=== PATIENT | female | born 1945 | race Hispanic/Latino ===

== ENCOUNTER 2022-08-19 17:03 | Emergency (ER) | payer OTHER ==
[~2022-08-19] VITALS: Ht 149.9 cm; Wt 73.9 kg
[2022-08-19] MEDS ORDERED: ASPIRIN 325MG TAB PO ONE (17:30)
[2022-08-19] MEDS ORDERED: NITROGLYCERIN 1GM OINT 1 INCH/1GM TD ONE (17:30)
[2022-08-19 17:48] LABS: BASOPHILS % (AUTO) 0.5 % (0.0-5.0); EOSINOPHILS % (AUTO) 1.7 % (0.0-8.0); HEMATOCRIT 36.4 % (36-48); LYMPHOCYTES % (AUTO) 17.6 % (21.0-51.0); MEAN CORPUSCULAR HEMOGLOBIN 29.6 pg (27.0-33.0); MEAN CORPUSCULAR HGB CONC 34.6 g/dL (32.0-36.0); MEAN CORPUSCULAR VOLUME 85.6 fL (79-99); MONOCYTES % (AUTO) 9.6 % (3.0-13.0); NEUTROPHILS % (AUTO) 69.9 % (40.0-77.0); PLATELET COUNT (AUTO) 273 K/uL (130-400); RED BLOOD CELL COUNT(AUTO) 4.25 MIL/uL (4.00-5.50); RED CELL DISTRIBUTION WIDTH 12.9 % (11.0-15.5); WHITE BLOOD COUNT (AUTO) 5.9 K/uL (4.8-10.8)
[2022-08-19] MEDS ORDERED: ALBUTEROL 0.083% 2.5 MG/3 ML INH IH ONE (18:00)
[2022-08-19] MEDS ORDERED: GUAIFENESIN-CODEINE 5 ML SYRUP PO ONE (18:00)
[2022-08-19] MEDS ORDERED: IPRATROPIUM/ALBUTEROL SULFATE 3 ML SOLUTION IH ONE (18:00)
[2022-08-19] MEDS ORDERED: BUDESONIDE 0.5 MG/2 ML INH IH SCH (18:00)
[2022-08-19] MEDS ORDERED: 0.9% NACL 500ML IV.SOLN 500 ML IV SCH (18:00)
[2022-08-19] MEDS ORDERED: SOLU-MEDROL 125MG VIAL IVP ONE (18:00)
[2022-08-19 18:03] LABS: CREATININE 0.8 mg/dL (0.5-1.5); POTASSIUM 3.3 mmol/L (3.5-5.1)
[2022-08-19 18:08] LABS: ALBUMIN 3.4 g/dL (3.5-5.0); TOTAL PROTEIN, SERUM 7.1 g/dL (6.0-8.3)
[2022-08-19 18:19] LABS: B-TYPE NATRIURETIC PEPTIDE 169 pg/mL (0-100)
[2022-08-19] MEDS ORDERED: DOXYCYCLINE HYCLATE 100 MG TABLET PO SCH (19:00)
[2022-08-19] MEDS ORDERED: POTASSIUM BICARB/CIT AC 25 MEQ TABLET.EFF PO ONE (19:00)
[2022-08-19] MEDS ORDERED: DOXY-469 PO (19:29)
[2022-08-19] MEDS ORDERED: BENZ-39 PO (19:29)
[2022-08-19] MEDS ORDERED: ALBU6.7H14 IH (19:29)
[2022-08-19] MEDS ORDERED: MELO-106 PO (19:29)
[2022-08-19 20:00] VITALS: BP 125/64
== END 2022-08-19 20:47 | disposition home or self-care (01) ==
LOC: EDH 17:03
DX: J40 Bronchitis, not specified as acute or chronic (principal); M94.0 Chondrocostal junction syndrome [Tietze]; Z20.822 Contact with and (suspected) exposure to COVID-19; I10 Essential (primary) hypertension; I25.10 Atherosclerotic heart disease of native coronary artery without angina pectoris; I48.91 Unspecified atrial fibrillation; Z79.1 Long term (current) use of non-steroidal anti-inflammatories (NSAID); Z88.0 Allergy status to penicillin; Z88.5 Allergy status to narcotic agent; Z90.49 Acquired absence of other specified parts of digestive tract; Z95.810 Presence of automatic (implantable) cardiac defibrillator
CPT/HCPCS: 99285; 96374; 71045; 87635; 83735; 84484; 80053; 83880; 85025; 87804 ×2; 36415; 93005; 94640 ×3; C9803; J7040; J2930

== ENCOUNTER 2022-11-21 15:51 | Emergency (ER) | payer OTHER ==
[~2022-11-21] VITALS: Ht 160 cm; Wt 73.5 kg
[~2022-11-21 15:51] MED LIST: ALBU6.7H14 IH; BENZ-39 PO; DOXY-469 PO; MELO-106 PO
[2022-11-21] MEDS ORDERED: ACETAMINOPHEN 500 MG TABLET PO ONE (17:00)
[2022-11-21 19:52] VITALS: BP 134/66
== END 2022-11-21 20:01 | disposition home or self-care (01) ==
LOC: EDH 15:51
DX: M25.562 Pain in left knee (principal); I10 Essential (primary) hypertension; Z79.899 Other long term (current) drug therapy; Z88.5 Allergy status to narcotic agent; Z88.0 Allergy status to penicillin; W03.XXXA Other fall on same level due to collision with another person, initial encounter; Y93.89 Activity, other specified; Y92.89 Other specified places as the place of occurrence of the external cause; Y99.8 Other external cause status
CPT/HCPCS: 72125; 73562

== ENCOUNTER 2023-10-18 11:31 | Emergency (ER) | payer BC, MEDICAID, OTHER ==
[~2023-10-18] VITALS: Ht 152.4 cm; Wt 71.7 kg
[2023-10-18 12:20] LABS: RAPID GROUP A STREP negative (NEGATIVE)
[2023-10-18 12:30] LABS: INFLUENZA TYPE A Negative For Type A (NEGATIVE); INFLUENZA TYPE B Negative For Type B (NEGATIVE)
[2023-10-18 12:36] LABS: SARS-CoV-2, RNA, NAAT POSITIVE SARS CoV-2 (NEGATIVE)
[2023-10-18] MEDS ORDERED: AZIT500T2 PO (13:30)
[2023-10-18] MEDS ORDERED: BENZ-39 PO (13:30)
[2023-10-18 14:36] VITALS: BP 177/64; PULSE 60; RESP 18; O2SAT 99
== END 2023-10-18 16:16 | disposition home or self-care (01) ==
LOC: EDH 11:31
DX: U07.1 COVID-19 (principal); R05.9 Cough, unspecified; J02.9 Acute pharyngitis, unspecified
CPT/HCPCS: 87635; 87804; 87880

== ENCOUNTER 2023-10-30 16:13 | Emergency (ER) | payer BC ==
[~2023-10-30] VITALS: Ht 157.5 cm; Wt 72.6 kg
[~2023-10-30 16:13] MED LIST changes: +AZIT500T2 PO
[2023-10-30 20:14] LABS: BASOPHILS # (AUTO) 0.03 K/uL (0.00-0.20); BASOPHILS % (AUTO) 0.3 % (0.0-5.0); EOSINOPHILS # (AUTO) 0.06 K/uL (0.00-0.70); EOSINOPHILS % (AUTO) 0.7 % (0.0-8.0); HEMATOCRIT 41.1 % (36-48); IMMATURE GRANULOCYTE ABSOLUTE 0.04 K/uL (0-1); LYMPHOCYTES # (AUTO) 1.4 K/uL (1.0-4.8); LYMPHOCYTES % (AUTO) 14.7 % (21.0-51.0); MEAN CORPUSCULAR HEMOGLOBIN 29.7 pg (27.0-33.0); MEAN CORPUSCULAR HGB CONC 33.6 g/dL (32.0-36.0); MEAN CORPUSCULAR VOLUME 88.4 fL (79-99); MONOCYTES # (AUTO) 0.7 K/uL (0.1-1.0); MONOCYTES % (AUTO) 7.9 % (3.0-13.0); PLATELET COUNT (AUTO) 289 K/uL (130-400); RED BLOOD CELL COUNT(AUTO) 4.65 MIL/uL (4.00-5.50); RED CELL DISTRIBUTION WIDTH 13.6 % (11.0-15.5); WHITE BLOOD COUNT (AUTO) 9.2 K/uL (4.8-10.8)
[2023-10-30 20:28] LABS: CREATININE 0.6 mg/dL (0.5-1.5); POTASSIUM 3.8 mmol/L (3.5-5.1)
[2023-10-30 20:33] LABS: ALBUMIN 4.1 g/dL (3.5-5.0); BILIRUBIN,TOTAL 0.5 mg/dL (0.2-1.0); TOTAL PROTEIN, SERUM 8.4 g/dL (6.0-8.3)
[2023-10-30 20:43] VITALS: BP 151/56; PULSE 62; RESP 16; O2SAT 100
[2023-10-30 20:50] LABS: APPEARANCE,URINE CLEAR (CLEAR); BILIRUBIN,URINE NEGATIVE (NEGATIVE); COLOR,URINE LIGHT-YELLOW (YELLOW); GLUCOSE, URINE (UA) NEGATIVE (NEGATIVE); KETONES,URINE NEGATIVE (NEGATIVE); LEUKOCYTE ESTERASE ,URINE NEGATIVE Leu/uL (NEGATIVE); NITRATE,URINE NEGATIVE (NEGATIVE); OCCULT BLOOD,URINE NEGATIVE (NEGATIVE); PH,URINE 6.5 (5.0-8.0); PROTEIN,URINE NEGATIVE (NEGATIVE); UROBILINOGEN,URINE 0.2 mg/dL (0.2-1.0)
[2023-10-30 21:11] LABS: ADD UA MICROSCOPIC YES
[2023-10-30 21:28] LABS: BACTERIA,URINE RARE /HPF (None Seen); MUCUS,URINE RARE LPF (None Seen); SQUAMOUS EPITHELIAL CELL,UR MOD /HPF (0-2); WBC,URINE 0-1 /HPF (0-1)
[2023-10-30] MEDS ORDERED: FAMO-136 PO (22:03)
[2023-10-30] MEDS ORDERED: PRED20TA3 PO (22:03)
[2023-10-30] MEDS ORDERED: DIPH50 PO (22:03)
[2023-10-30] MEDS ORDERED: PREDNISONE 20 MG TABLET PO ONE (22:30)
[2023-10-30] MEDS ORDERED: DIPHENHYDRAMINE HCL 25 MG CAPSULE PO ONE (22:30)
== END 2023-10-30 22:06 | disposition home or self-care (01) ==
LOC: EDH 16:13
DX: T78.40XA Allergy, unspecified, initial encounter (principal); I10 Essential (primary) hypertension; Z88.0 Allergy status to penicillin; Z88.5 Allergy status to narcotic agent; Z95.0 Presence of cardiac pacemaker
CPT/HCPCS: 36415; 71045; 80053; 81001; 82150; 82550; 83690; 85025

== ENCOUNTER 2024-01-30 09:46 | Emergency (ER) | payer BC, OTHER ==
[~2024-01-30] VITALS: Ht 160 cm; Wt 72.6 kg
[~2024-01-30 09:46] MED LIST changes: +DIPH50 PO; +FAMO-136 PO; +PRED20TA3 PO
[2024-01-30 13:01] VITALS: BP 130/72; PULSE 60; RESP 18; O2SAT 99
== END 2024-01-30 13:04 | disposition home or self-care (01) ==
LOC: EDH 09:46
DX: S70.12XA Contusion of left thigh, initial encounter (principal); M79.672 Pain in left foot; M25.572 Pain in left ankle and joints of left foot; M25.562 Pain in left knee; M25.552 Pain in left hip; M79.605 Pain in left leg; I10 Essential (primary) hypertension; W01.10XA Fall on same level from slipping, tripping and stumbling with subsequent striking against unspecified object, initial encounter; Y93.89 Activity, other specified; Y92.89 Other specified places as the place of occurrence of the external cause; Y99.8 Other external cause status
CPT/HCPCS: 72170; 73552; 73562; 73590; 73600; 73620; 93971

== ENCOUNTER 2024-04-18 17:17 | Emergency (ER) | payer OTHER ==
[~2024-04-18] VITALS: Ht 154.9 cm; Wt 70.3 kg
[~2024-04-18 17:17] MED LIST changes: -DOXY-469 PO; +DOXY100C61 PO
[2024-04-18 20:49] LABS: BASOPHILS # (AUTO) 0.03 K/uL (0.00-0.20); BASOPHILS % (AUTO) 0.5 % (0.0-5.0); EOSINOPHILS # (AUTO) 0.12 K/uL (0.00-0.70); EOSINOPHILS % (AUTO) 1.9 % (0.0-8.0); HEMATOCRIT 38.6 % (36-48); IMMATURE GRANULOCYTE ABSOLUTE 0.02 K/uL (0-1); LYMPHOCYTES % (AUTO) 16.3 % (21.0-51.0); MEAN CORPUSCULAR HEMOGLOBIN 28.4 pg (27.0-33.0); MEAN CORPUSCULAR HGB CONC 33.2 g/dL (32.0-36.0); MEAN CORPUSCULAR VOLUME 85.6 fL (79-99); MONOCYTES # (AUTO) 0.5 K/uL (0.1-1.0); MONOCYTES % (AUTO) 8.6 % (3.0-13.0); NEUTROPHILS # (AUTO) 4.6 K/uL (1.8-7.7); NEUTROPHILS % (AUTO) 72.4 % (40.0-77.0); PLATELET COUNT (AUTO) 223 K/uL (130-400); RED BLOOD CELL COUNT(AUTO) 4.51 MIL/uL (4.00-5.50); RED CELL DISTRIBUTION WIDTH 13.9 % (11.0-15.5); WHITE BLOOD COUNT (AUTO) 6.3 K/uL (4.8-10.8)
[2024-04-18 21:03] LABS: CREATININE 0.7 mg/dL (0.5-1.0); POTASSIUM 4.2 mmol/L (3.5-5.1)
[2024-04-18 21:07] LABS: ALBUMIN 4.1 g/dL (3.5-5.0); BILIRUBIN,TOTAL 0.4 mg/dL (0.2-1.0); TOTAL PROTEIN, SERUM 8.5 g/dL (6.0-8.3)
[2024-04-18] MEDS: KETOROLAC 15MG/ML VIAL (15MG/ML) IV ONE (21:46)
[2024-04-18 21:49] VITALS: BP 123/70; PULSE 77; RESP 20; O2SAT 98
[2024-04-19] MEDS ORDERED: PHEN-776 PO (10:43)
[2024-04-19] MEDS ORDERED: NITR100C9 PO (10:43)
== END 2024-04-18 21:58 | disposition left against medical advice (07) ==
LOC: EDH 17:17
DX: R10.2 Pelvic and perineal pain (principal); I10 Essential (primary) hypertension; Z88.5 Allergy status to narcotic agent; Z88.0 Allergy status to penicillin; Z79.899 Other long term (current) drug therapy; Z98.890 Other specified postprocedural states
CPT/HCPCS: 99285; 74176; 96374; 80053; 85025; 36415; J1885

== ENCOUNTER 2024-04-19 09:16 | Emergency (ER) | payer OTHER ==
[~2024-04-19] VITALS: Ht 152.4 cm; Wt 63.5 kg
[2024-04-19 10:08] LABS: ADD UA MICROSCOPIC YES; APPEARANCE,URINE CLEAR (CLEAR); BILIRUBIN,URINE NEGATIVE (NEGATIVE); COLOR,URINE YELLOW (YELLOW); GLUCOSE, URINE (UA) NEGATIVE (NEGATIVE); KETONES,URINE NEGATIVE (NEGATIVE); LEUKOCYTE ESTERASE ,URINE NEGATIVE Leu/uL (NEGATIVE); NITRATE,URINE NEGATIVE (NEGATIVE); OCCULT BLOOD,URINE SMALL (NEGATIVE); PH,URINE 6.5 (5.0-8.0); PROTEIN,URINE NEGATIVE (NEGATIVE); UROBILINOGEN,URINE 0.2 mg/dL (0.2-1.0)
[2024-04-19 10:12] LABS: MUCUS,URINE RARE LPF (None Seen); SQUAMOUS EPITHELIAL CELL,UR FEW /HPF (0-2); WBC,URINE 0-1 /HPF (0-1)
[2024-04-19] MEDS ORDERED: PHEN-776 PO (10:43)
[2024-04-19] MEDS ORDERED: NITR100C9 PO (10:43)
[2024-04-19 10:44] VITALS: BP 161/62; PULSE 62; RESP 16; O2SAT 98
== END 2024-04-19 10:51 | disposition home or self-care (01) ==
LOC: EDH 09:16
DX: R39.89 Other symptoms and signs involving the genitourinary system (principal); R30.0 Dysuria; I10 Essential (primary) hypertension; Z88.5 Allergy status to narcotic agent; Z88.0 Allergy status to penicillin; Z79.899 Other long term (current) drug therapy; Z90.49 Acquired absence of other specified parts of digestive tract; Z95.0 Presence of cardiac pacemaker; Z98.890 Other specified postprocedural states
CPT/HCPCS: 81001

== ENCOUNTER 2024-05-05 10:37 | Emergency (ER) | payer OTHER ==
[~2024-05-05] VITALS: Ht 167.6 cm; Wt 65.8 kg
[~2024-05-05 10:37] MED LIST changes: +NITR100C9 PO; +PHEN-776 PO
[2024-05-05 11:31] LABS: SARS-CoV-2, RNA, NAAT NEGATIVE SARS CoV-2 (NEGATIVE)
[2024-05-05 11:37] LABS: INFLUENZA TYPE A Negative For Type A (NEGATIVE); INFLUENZA TYPE B Negative For Type B (NEGATIVE)
[2024-05-05] MEDS: IPRATROPIUM/ALBUTEROL SULFATE 3 ML SOLUTION IH ONE (11:52)
[2024-05-05 11:54] VITALS: PULSE 60; RESP 20
[2024-05-05] MEDS ORDERED: BENZ-39 PO (11:55)
[2024-05-05] MEDS: GUAIFENESIN-DM 200/20 MG 10 ML PO ONE (12:20)
[2024-05-05] MEDS: DEXAMETHASONE SOD PHOSPHATE 4 MG/ML 1ML VIAL IM ONE (12:20)
[2024-05-05 13:00] VITALS: BP 146/67; PULSE 60; RESP 17; O2SAT 98
== END 2024-05-05 12:50 | disposition home or self-care (01) ==
LOC: EDH 10:37
DX: J40 Bronchitis, not specified as acute or chronic (principal); I10 Essential (primary) hypertension; E11.9 Type 2 diabetes mellitus without complications; Z90.49 Acquired absence of other specified parts of digestive tract; Z20.822 Contact with and (suspected) exposure to COVID-19; Z79.899 Other long term (current) drug therapy; Z98.890 Other specified postprocedural states; Z88.0 Allergy status to penicillin; Z88.5 Allergy status to narcotic agent
CPT/HCPCS: 99284; 71046; 87635; 87880; 87804 ×2; 96372; 94640; J1100

== ENCOUNTER 2024-11-19 18:01 | Emergency (ER) | payer SELFPAY ==
[~2024-11-19] VITALS: Ht 165.1 cm; Wt 68.0 kg
--- NOTE | 2024-11-19 19:00 | ERN ---
ED Note History of Present Illness Stated Complaint: LOWER ABDOMINAL PAIN Chief Complaint: Abdominal Pain Time Seen by MD: 18:06 Time Seen by Midlevel: 18:06 Dictation: The patient is an 79-year-old female with a history of hypertension who presents to the emergency department with complains of suprapubic abd pain and painful urination onset 3 weeks ago. Patient denies any fevers, nausea or vomiting, denies diarrhea or constipation. denies hematuria . Allergies: Coded Allergies: Penicillins (Unverified Allergy, Unknown, 08/19/22) morphine (Unverified Allergy, Unknown, 08/19/22) Home Meds Active Scripts Benzonatate (Tessalon Perles) 100 Mg Cap, 100 MG PO q8 hours PRN for Cough, #15 CAP 0 Refills Prov:ROSALES MCCRAY NP 05/05/24 Nitrofurantoin Monohyd/M-Cryst (Nitrofurantoin [place]-Mcr 100 mg) 100 Mg Capsule, 100 MG PO BID for 5 Days, #10 CAP Prov:JOSETTE SOTO NP 04/19/24 Phenazopyridine HCl (Pyridium) 200 Mg Tablet, 200 MG PO TID for painful urination for 10 Days, #30 TAB 0 Refills Prov:JOSETTE SOTO NP 04/19/24 Famotidine (Pepcid) 20 Mg Tablet, 20 MG PO DAILY, #30 TAB Prov:YOVANI MCARTHUR MD 10/30/23 Prednisone (Prednisone) 20 Mg Tablet, 1 TAB PO AD for 6 Days, #14 TAB 0 Refills TAKE 3 TAB BY MOUTH daily X3 DAYS, THEN TAKE 2 TAB BY MOUTH daily X2 DAYS, THEN TAKE 1 TAB BY MOUTH ONCE A DAY X1 DAY. Prov:YOVANI MCARTHUR MD 10/30/23 Diphenhydramine HCl (Benadryl) 50 Mg Cap, 50 MG PO QID PRN for itching for 10 Days, #30 CAP 0 Refills Prov:YOVANI MCARTHUR MD 10/30/23 Benzonatate (Tessalon Perles) 100 Mg Cap, 100 MG PO TID for cough, #30 CAP 0 Refills Prov:AMINTA RAMACHANDRAN NP 10/18/23 Azithromycin (Zithromax Tri-[place]ley) 500 Mg Tablet, 500 MG PO DAILY, #3 TAB Prov:AMINTA RAMACHANDRAN NP 10/18/23 Meloxicam (Meloxicam) 7.5 Mg Tablet, 7.5 MG PO DAILYBKFST, #30 TAB Prov:CARTER CUTLER 08/19/22 Albuterol Sulfate (Proventil Hfa) 6.7 Gm Hfa.aer.ad, 2 PUFF IH QID, #1 INHALER Prov:CARTER CUTLER 08/19/22 Benzonatate (Tessalon Perles) 100 Mg Cap, 100 MG PO QID, #30 CAP Prov:CARTER CUTLER 08/19/22 Doxycycline Monohydrate (Doxycycline Monohydrate) 100 Mg Capsule, 100 MG PO BID for 10 Days, #20 CAP Prov:CARTER CUTLER 08/19/22 Past Medical History Past Medical History: Hypertension Surgical History: Cholecystectomy, Pacer/AICD Surgical History Other: PACEMAKER Family History: Negative Social History: Lives with family History: Not Applicable RN Note Reviewed/Agreed w/PFSH: Yes Review of System Dictation Constitutional: Negative for fever,chills, and weight loss Eyes: Negative for injury, pain,redness, and discharge ENT: Negative for injury,pain or swelling Cardiovascular: Negative for chest pain, palpitations, and edema Respiratory: Negative for shortness of breath, cough, and wheezing, Abdomen/GI: Negative for nausea, vomiting, diarrhea, and constipation positive for abdominal pain, Back: Negative for injury and pain : Negative for injury, bleeding and discharge positive for painful urination MS/Extremity: Negative for injury and deformity Skin: Negative for rash, and discoloration Neuro: Negative for headache, weakness, numbness, tingling, and seizure Psych: Negative for suicide ideation, homicidal ideation, and hallucinations Initial Vital Sign VS Vital Signs Date Time Temp Pulse Resp B/P (MAP) Pulse Ox O2 Delivery O2 Flow Rate FiO2 11/19/24 18:03 97.3 60 20 164/69 99 Room Air 0 Physical Exam Dictation Vital Signs reviewed General Appearance: Alert, oriented x 3, no acute distress, well developed, nourished. Head and Face: non-traumatic. Eyes: PERRL, pink conjunctivas, eyelid no trauma, anterior chamber with arcus senilis. Ears: Pinnas intact and no signs of trauma or erythema ear canals clear and no discharge TM no erythema Nose: No discharge, no bleeding. Oropharynx: Mouth normal, tongue pink. pharynx clear,no erythema, tonsils no exudates, no abscesses noted, mucous membrane moist Neck: Supple, non-tender, no thyromegaly, no masses, no JVD, no bruits Breast:Deferred Chest:No tenderness, no crepitus, no paradoxical movement, no retractions Lungs:Clear, well-ventilated, symmetric, no rales, no wheezing, no rhonchi, no stridor, good breath sounds bilaterally Heart: Regular rate, regular rhythm, no murmur, no gallops Vascular: no peripheral edema, Abdomen: Soft, positive bowel sounds, nondistended, no guarding, nontender, no rebound, no masses no hepatomegaly, no splenomegaly, no Apple's sign, no hernias. Rectal: Deferred Genital: Deferred Neurological: Normal speech, motor function intact, sensory function intact Musculoskeletal: Neck nontender, full range of motion, back nontender, full range of motion, Extremities: nontender, full range of motion Skin: Color pink, dry, no turgor, no rash, no lacerations, no abrasions, no contusions. Lymphatic: Deferred Results (Laboratory/Radiology) Laboratory/Radiology Laboratory Tests Test 11/19/24 20:10 11/19/24 20:15 Urine Color COLORLESS (YELLOW) Urine Appearance CLEAR (CLEAR) Urine pH 7.0 (5.0-8.0) Urine Specific [place] 1.002 (1.001-1.031) Urine Protein NEGATIVE mg/dL (NEGATIVE) Urine Glucose (UA) NEGATIVE mg/dL (NEGATIVE) Urine Ketones NEGATIVE mg/dL (NEGATIVE) Urine Occult Blood NEGATIVE (NEGATIVE) Urine Nitrate NEGATIVE (NEGATIVE) Urine Bilirubin NEGATIVE mg/dL (NEGATIVE) Urine Urobilinogen 0.2 mg/dL (0.2-1.0) Urine Leukocyte Esterase NEGATIVE Elia/uL White Blood Count 4.8 K/uL (4.8-10.8) Red Blood Count 4.10 MIL/uL (4.00-5.50) Hemoglobin 12.2 g/dL (12.0-16.0) Hematocrit 37.4 % (36-48) Mean Corpuscular Volume 91.2 fL (79-99) Mean Corpuscular Hemoglobin 29.8 pg (27.0-33.0) Mean Corpuscular Hemoglobin Concent 32.6 g/dL (32.0-36.0) Red Cell Distribution Width 13.4 % (11.0-15.5) Platelet Count 191 K/uL (130-400) Mean Platelet Volume 9.5 fL (7.5-10.5) Immature Granulocyte % (Auto) 0.4 % (0-1) Neutrophils (%) (Auto) 67.7 % (40.0-77.0) Lymphocytes (%) (Auto) 20.7 % (21.0-51.0) L Monocytes (%) (Auto) 8.9 % (3.0-13.0) Eosinophils (%) (Auto) 1.7 % (0.0-8.0) Basophils (%) (Auto) 0.6 % (0.0-5.0) Neutrophils # (Auto) 3.3 K/uL (1.8-7.7) Lymphocytes # (Auto) 1.0 K/uL (1.0-4.8) Monocytes # (Auto) 0.4 K/uL (0.1-1.0) Eosinophils # (Auto) 0.08 K/uL (0.00-0.70) Basophils # (Auto) 0.03 K/uL (0.00-0.20) Absolute Immature Granulocyte (auto 0.02 K/uL (0-1) Nucleated Red Blood Cells 0.0 % (0.0-0.19) Sodium Level 135 mmol/L (136-145) L Potassium Level 3.7 mmol/L (3.5-5.1) Chloride Level 98 mmol/L (101-111) L Carbon Dioxide Level 35 mmol/L (21-32) H Blood Urea Nitrogen 18 mg/dL (7-18) Creatinine 0.8 mg/dL (0.5-1.0) Glomerular Filtration Rate Calc 74 mL/min (>90) Random Glucose 100 mg/dL (70-105) Total Calcium 9.0 mg/dL (8.5-10.1) Labs Reviewed?: Yes ED Course ED Course Orders Procedure Category Date Status Time Cbc With Differential LAB 11/19/24 Complete 18: Urinalysis Profile LAB 11/19/24 Complete 18:29 Basic Metabolic Panel LAB 2/11/25 Complete 18:29 Acetaminophen 325 Tab PHA 11/19/24 Complete (Tylenol 325mg Tab 18:30 Ct Abdomen/Pelvis W/O CT 11/19/24 Resulted Contrast 18:35 Us Pelvic Non-Ob Comp US 11/19/24 Taken 21:24 Current Medications Medications (Trade) Dose Ordered Sig/Franco Route PRN Reason Start Time Stop Time Status Last Admin Dose Admin Acetaminophen (TYLenol 325MG TAB) 650 mg ONCE ONCE PO 11/19/24 18:30 11/19/24 18:31 DC Vital Signs Date Time Temp Pulse Resp B/P (MAP) Pulse Ox O2 Delivery O2 Flow Rate FiO2 11/19/24 18:03 97.3 60 20 164/69 99 Room Air 0 Medical Decision Making MDM The patient is an 79-year-old female with a history of hypertension who presents to the emergency department with complains of suprapubic abd pain and painful urination onset 3 weeks ago. Patient denies any fevers, nausea or vomiting, denies diarrhea or constipation. denies hematuria . CBC showed no leukocytosis, no anemia, normal platelets, chemistry showed mild hyponatremia, hypochloremia, GFR of 74, urinalysis unremarkable, CT abdomen and pelvis showed a small pericardial effusion. Superior endplate compression fracture involving T11-L1 with 20% loss of height. Patient reports she is aware of fracture but has not followed up with anyone. Similar fractured in previous CT. Patient with no upper back pain or chest pain, denies shortness of breath. CT also showed a right adrenal nodule measuring 2.3 cm. Fecal material in the colon. The uterus enlarged suggesting vibrate uterus, uterus of 7.8 x 3.9 cm reports 5 cm, endometrial and not well defined 2 mm, right ovary not well defined, left ovary not well defined, multiple calcified vessels. Labs and sylvia ging discussed with the patient and instructed to follow up with PCP for further referral of problems found on CT. Patient currently in no acute distress, nontoxic appearance. Agrees to be discharged and follow up PCP. Differential diagnosis: UTI, pyelonephritis, appendicitis, electrolyte imbalance Need for hospitalization: Patient does not meet criteria for hospitalization. There are no social concerns with this patient. DX & DISP Disposition: Discharge Departure Impression: Primary Impression: Fibroid uterus Additional Impressions: Pelvic pain, Dysuria, Pericardial effusion Condition: Stable Additional Instructions: Please follow up with your primary doctor for referrals of further findings we discussed in ER. Please return to ER if symptoms worsen. FOLLOW-UP WITH PRIMARY CARE PROVIDER IN 1 TO 2 DAYS. TAKE MEDICATIONS DIRECTED HERE IN THE EMERGENCY ROOM. OKAY TO CONTINUE HOME MEDICATIONS UNLESS OTHERWISE DISCUSSED DURING YOUR VISIT IN THE EMERGENCY ROOM TODAY. RETURN TO YOUR NEAREST EMERGENCY ROOM IF SYMPTOMS WORSEN OR IF THERE IS NO IMPROVEMENT. CALL 911 IF YOU NEED IMMEDIATE ASSISTANCE. TAKE TYLENOL OR MOTRIN [id number] NEEDED AND IF NO CONTRAINDICATIONS ARE PRESENT. INCREASE ORAL HYDRATION. A WOUND CULTURE OR URINE CULTURE WAS ORDERED HERE IN THE EMERGENCY ROOM DEPARTMENT PLEASE FOLLOW-UP WITH PRIMARY CARE PROVIDER AND ADVISE THEM TO GET REPEAT PORTS FROM OUR FACILITY. IF YOU HAD ANY LATASHA WRAP/SPLINTS THAT WERE APPLIED HERE, PLEASE DO NOT REMOVE THEM UNTIL YOU SEE YOUR PRIMARY CARE OR SPECIALTY. Referrals: VLADIMIR ORELLANA (PCP) Time of Disposition: 22:15 I have reviewed the case, and I agree with, Diagnosis and Plan DAVID COATES Nov 19, 2024 19:00
--- NOTE | 2024-11-19 20:06 | HMCIMG ---
CT ABDOMEN/PELVIS W/O CONTRAST HISTORY: Lower abdominal pain COMPARISON: 04/18/2024 TECHNIQUE: Multiple sequential axial images of the abdomen and pelvis were obtained from the dome of the diaphragm through symphysis pubis. Patient was not given contrast through intravenous route. Oral contrast was not given. FINDINGS: No pleural effusion is seen bilaterally. There is no evidence of parenchymal disease or pulmonary nodule of the visualized lower lungs. There is a small pericardial effusion. Degenerative changes of the thoracolumbar spine are present. Superior endplate compression fractures are seen involving T11 and L1 with 20% loss of height. The heart is not enlarged. Right adrenal nodule is seen measuring 2.3 cm suggested of adrenal edema. The liver, spleen, left adrenal gland and pancreas are unremarkable. There is no evidence of hydronephrosis bilaterally. No evidence of renal stone is seen. Fecal material is seen in the colon. There are normal size retroperitoneal and mesenteric lymph nodes. No ascites is seen. Atherosclerotic changes are present. Uterus is enlarged suggests a fibroid uterus. Pelvic sidewalls are symmetric bilaterally. Bladder is well distended without wall thickening. IMPRESSION: 1. Large amount of fecal material is seen. Fibroid uterus. Right adrenal nodule is seen measuring 2.3 cm suggested of adrenal edema. CT was performed with one or more following dose reduction techniques: automated exposure control, adjustment of the mA and kv according to patient's size, or use of a iterative reconstruction technique.
[2024-11-19 20:44] LABS: BASOPHILS # (AUTO) 0.03 K/uL (0.00-0.20); BASOPHILS % (AUTO) 0.6 % (0.0-5.0); EOSINOPHILS # (AUTO) 0.08 K/uL (0.00-0.70); EOSINOPHILS % (AUTO) 1.7 % (0.0-8.0); HEMATOCRIT 37.4 % (36-48); IMMATURE GRANULOCYTE ABSOLUTE 0.02 K/uL (0-1); LYMPHOCYTES % (AUTO) 20.7 % (21.0-51.0); MEAN CORPUSCULAR HEMOGLOBIN 29.8 pg (27.0-33.0); MEAN CORPUSCULAR HGB CONC 32.6 g/dL (32.0-36.0); MEAN CORPUSCULAR VOLUME 91.2 fL (79-99); MONOCYTES # (AUTO) 0.4 K/uL (0.1-1.0); MONOCYTES % (AUTO) 8.9 % (3.0-13.0); NEUTROPHILS # (AUTO) 3.3 K/uL (1.8-7.7); NEUTROPHILS % (AUTO) 67.7 % (40.0-77.0); PLATELET COUNT (AUTO) 191 K/uL (130-400); RED CELL DISTRIBUTION WIDTH 13.4 % (11.0-15.5); WHITE BLOOD COUNT (AUTO) 4.8 K/uL (4.8-10.8)
[2024-11-19 20:46] LABS: APPEARANCE,URINE CLEAR (CLEAR); BILIRUBIN,URINE NEGATIVE (NEGATIVE); COLOR,URINE COLORLESS (YELLOW); GLUCOSE, URINE (UA) NEGATIVE (NEGATIVE); KETONES,URINE NEGATIVE (NEGATIVE); LEUKOCYTE ESTERASE ,URINE NEGATIVE Leu/uL (NEGATIVE); NITRATE,URINE NEGATIVE (NEGATIVE); OCCULT BLOOD,URINE NEGATIVE (NEGATIVE); PROTEIN,URINE NEGATIVE (NEGATIVE); UROBILINOGEN,URINE 0.2 mg/dL (0.2-1.0)
[2024-11-19 20:48] LABS: ADD UA MICROSCOPIC NO
[2024-11-19 20:58] LABS: CREATININE 0.8 mg/dL (0.5-1.0); POTASSIUM 3.7 mmol/L (3.5-5.1)
[2024-11-19] MEDS: acetaMINOPHEN 325 MG TAB PO ONE (23:17)
[2024-11-19] MEDS: acetaMINOPHEN 325 MG TAB ONE (23:18)
[2024-11-19 23:26] VITALS: BP 145/65; PULSE 88; RESP 18; TEMP 98.5; O2SAT 99
--- NOTE | 2024-11-19 23:26 | NUR ---
ASSUMED PT CARE
--- NOTE | 2024-11-20 11:42 | HMCIMG ---
US PELVIC NON-OB COMP HISTORY: Pelvic pain COMPARISON: None TECHNIQUE: Transabdominal pelvic ultrasound study was performed. FINDINGS: The uterus measures 7.8 x 3.9 x 3.5 cm. Ovaries are not seen. Endometrium is not well visualized measuring approximately 2 mm. Calcified vessels are seen within the uterus. No free fluid is seen in the cul-de-sac. IMPRESSION: 1. No adnexal mass is seen.
== END 2024-11-19 23:30 | disposition home or self-care (01) ==
LOC: EDH 18:01
DX: D25.9 Leiomyoma of uterus, unspecified (principal); R10.2 Pelvic and perineal pain; R30.0 Dysuria; I31.39 Other pericardial effusion (noninflammatory); I10 Essential (primary) hypertension; Z88.0 Allergy status to penicillin; Z88.5 Allergy status to narcotic agent; Z90.49 Acquired absence of other specified parts of digestive tract; Z95.810 Presence of automatic (implantable) cardiac defibrillator
CPT/HCPCS: 36415; 74176; 76856; 80048; 81003; 85025; 99284

== ENCOUNTER 2025-04-01 08:40 | Emergency (ER) | payer SELFPAY ==
[~2025-04-01] VITALS: Ht 157.5 cm; Wt 68.0 kg
[~2025-04-01 08:40] MED LIST changes: +DOXY-466 PO; -DOXY100C61 PO
--- NOTE | 2025-04-01 09:06 | EKG ---
[facility] Test Date: 2025-04-01 Test Time: 09:02:37 Pat Name: NESS ARMSTRONG Department: [facility] Room: Gender: F Customer Care Agent: [id number] [phone] [id number] Requested By: DAVIAN GUZMAN Order Number: [id number] Reading MD: Clemente Sommers Measurements Intervals [place] Rate: 60 P: 0 MT: 272 QRS: -68 QRSD: 176 T: 108 QT: 495 QTc: 495 Interpretive Statements Ventricular-paced rhythm Compared to ECG 08/19/2022 17:10:16 Atrial fibrillation no longer present ST (T wave) deviation no longer present Possible ischemia no longer present Electronically Signed On 04-01-2025 18:13:44 CDT by Clemente Sommers Please click the below link to view image of tracing.
[2025-04-01 09:17] LABS: BASOPHILS # (AUTO) 0.02 K/uL (0.00-0.20); BASOPHILS % (AUTO) 0.4 % (0.0-5.0); EOSINOPHILS # (AUTO) 0.02 K/uL (0.00-0.70); EOSINOPHILS % (AUTO) 0.4 % (0.0-8.0); HEMATOCRIT 35.7 % (36-48); IMMATURE GRANULOCYTE ABSOLUTE 0.01 K/uL (0-1); LYMPHOCYTES # (AUTO) 0.6 K/uL (1.0-4.8); LYMPHOCYTES % (AUTO) 10.2 % (21.0-51.0); MEAN CORPUSCULAR HGB CONC 34.5 g/dL (32.0-36.0); MEAN CORPUSCULAR VOLUME 84.2 fL (79-99); MONOCYTES # (AUTO) 0.3 K/uL (0.1-1.0); MONOCYTES % (AUTO) 4.9 % (3.0-13.0); NEUTROPHILS # (AUTO) 4.6 K/uL (1.8-7.7); NEUTROPHILS % (AUTO) 83.9 % (40.0-77.0); PLATELET COUNT (AUTO) 192 K/uL (130-400); RED BLOOD CELL COUNT(AUTO) 4.24 MIL/uL (4.00-5.50); RED CELL DISTRIBUTION WIDTH 13.9 % (11.0-15.5); WHITE BLOOD COUNT (AUTO) 5.5 K/uL (4.8-10.8)
[2025-04-01] MEDS: PANTOPrazole 40 MG/VIAL IVP ONE (09:23)
[2025-04-01] MEDS: LACTATED RINGERS 1000ML 1,000 ML IV ONE (09:24)
[2025-04-01 09:40] LABS: ALBUMIN 3.8 g/dL (3.5-5.0); BILIRUBIN,TOTAL 0.5 mg/dL (0.2-1.0); CREATININE 0.5 mg/dL (0.5-1.0); POTASSIUM 3.7 mmol/L (3.5-5.1); TOTAL PROTEIN, SERUM 7.5 g/dL (6.0-8.3)
[2025-04-01 10:04] VITALS: BP 160/63; PULSE 59; RESP 18; TEMP 97.5; O2SAT 100
[2025-04-01 10:29] LABS: APPEARANCE,URINE CLEAR (CLEAR); BILIRUBIN,URINE NEGATIVE (NEGATIVE); GLUCOSE, URINE (UA) NEGATIVE (NEGATIVE); KETONES,URINE NEGATIVE (NEGATIVE); LEUKOCYTE ESTERASE ,URINE NEGATIVE Leu/uL (NEGATIVE); NITRATE,URINE NEGATIVE (NEGATIVE); OCCULT BLOOD,URINE NEGATIVE (NEGATIVE); PROTEIN,URINE NEGATIVE (NEGATIVE); UROBILINOGEN,URINE 0.2 mg/dL (0.2-1.0)
--- NOTE | 2025-04-01 10:31 | ERN ---
General Chief Complaint: Abdominal Pain Stated Complaint: ABD PAIN Time Seen by MD: 08:45 Source: patient History of Present Illness Initial Comments Patient is a 80-year-old female coming in to be evaluated for abdominal discomfort. Patient states that she has been having diarrhea and epigastric pain for one day. No fever no chills. Mild nauseousness at times. Allergies: Coded Allergies: Penicillins (Unverified Allergy, Unknown, 08/19/22) morphine (Unverified Allergy, Unknown, 08/19/22) Home Meds Active Scripts Benzonatate (Tessalon Perles) 100 Mg Cap, 100 MG PO q8 hours PRN for Cough, #15 CAP 0 Refills Prov:ROSALES MCCRAY NP 05/05/24 Nitrofurantoin Monohyd/M-Cryst (Nitrofurantoin [place]-Mcr 100 mg) 100 Mg Capsule, 100 MG PO BID for 5 Days, #10 CAP Prov:JOSETTE SOTO NP 04/19/24 Phenazopyridine HCl (Pyridium) 200 Mg Tablet, 200 MG PO TID for painful urination for 10 Days, #30 TAB 0 Refills Prov:JOSETTE SOTO TELEPHONE INSTALLER 04/19/24 Famotidine (Pepcid) 20 Mg Tablet, 20 MG PO DAILY, #30 TAB Prov:YOVANI MCARTHUR MD 10/30/23 Prednisone (Prednisone) 20 Mg Tablet, 1 TAB PO AD for 6 Days, #14 TAB 0 Refills TAKE 3 TAB BY MOUTH daily X3 DAYS, THEN TAKE 2 TAB BY MOUTH daily X2 DAYS, THEN TAKE 1 TAB BY MOUTH ONCE A DAY X1 DAY. Prov:YOVANI MCARTHUR MD 10/30/23 Diphenhydramine HCl (Benadryl) 50 Mg Cap, 50 MG PO QID PRN for itching for 10 Days, #30 CAP 0 Refills Prov:YOVANI MCARTHUR MD 10/30/23 Benzonatate (Tessalon Perles) 100 Mg Cap, 100 MG PO TID for cough, #30 CAP 0 Refills Prov:AMINTA RAMACHANDRAN NP 10/18/23 Azithromycin (Zithromax Tri-[place]) 500 Mg Tablet, 500 MG PO DAILY, #3 TAB Prov:AMINTA RAMACHANDRAN NP 10/18/23 Meloxicam (Meloxicam) 7.5 Mg Tablet, 7.5 MG PO DAILYBKFST, #30 TAB Prov:CARTER CUTLER DMITRI 08/19/22 Albuterol Sulfate (Proventil Hfa) 6.7 Gm Hfa.aer.ad, 2 PUFF IH QID, #1 INHALER Prov:CARTER CUTLER DMITRI 08/19/22 Benzonatate (Tessalon Perles) 100 Mg Cap, 100 MG PO QID, #30 CAP Prov:CARTER CUTLER DMITRI 08/19/22 Doxycycline Monohydrate (Doxycycline Monohydrate) 100 Mg Capsule, 100 MG PO BID for 10 Days, #20 CAP Prov:CARTER CUTLER DMITRI 08/19/22 Past Medical History Past Medical History: Arthritis, Hypertension Past Surgical History: Cholecystectomy Surgical History Other: PACEMAKER Family History Family History: Negative Social History Social History: Lives with family Female( History) History: Not Applicable ROS Dictation CONSTITUTIONAL: No chills, no fever, no weakness, no diaphoresis, no malaise. HEAD/FACE: No signs of trauma. EENT: No eye pain, no blurred vision, no tearing, no double vision, no ear pain, no ear discharge, no nose pain, no nasal congestion, no throat pain, no throat swelling, no mouth pain. RESPIRATORY: No cough, no orthopnea, no SOB, no stridor, no wheezing. CARDIOVASCULAR: No chest pain, no edema, no palpitations, no syncope. GASTROINTESTINAL/ABDOMINAL: abdominal pain, no constipation, no diarrhea, no nausea, no vomiting. GENITOURINARY: No abnormal discharge, no dysuria, no frequent urination, no hematuria. No complaints of pain in the genitals. MUSCULOSKELETAL: No back pain, no gout, no joint pain, no joint swelling, no muscle pain, no muscle stiffness, no neck pain. INTEGUMENTARY: No change in color, no change in hair/nails, no dryness, no lesion, no lumps, no rash. NEUROLOGICAL/PSYCH: No anxiety, not depressed, no emotional problem, no headache, no numbness, no pre-existing deficit, no history of seizures, no tremors, no weakness. HEMATOLOGIC/LYMPHATIC: Not anemic, no history of blood clots, no apparent bleeding, no bruising, glands not swollen. All Systems Negative, Except as Noted. Physical Exam Physical Exam Dictation VITAL SIGNS: Reviewed. GENERAL APPEARANCE: Alert, oriented x3, no acute distress, obese. HEAD AND FACE: Non-traumatic. EYES: PERRL, pink conjunctivas, eyelid no trauma, anterior chamber clear. EARS: Pinnas intact and no signs of trauma or erythema. Ear canals clear and no discharge. TMs no erythema. NOSE: No discharge, no bleeding. OROPHARYNX: Mouth normal, teeth no caries, tongue pink. Pharynx clear, no erythema. Tonsils no exudates, no abscesses noted. Mucous membrane moist. NECK: Supple, non-tender, no thyromegaly, no masses, no JVD, no bruits. BREAST: Deferred. CHEST: No tenderness, no crepitus, no paradoxical movement, no retractions. LUNGS: Clear, well-ventilated, symmetric, no rales, no wheezing, no rhonchi, no stridor, good breath sounds bilaterally. HEART: Regular rate, regular rhythm, no murmur, no gallops. VASCULAR: No peripheral edema. ABDOMEN: Soft, positive bowel sounds, nondistended, no guarding, epigastric tender, no rebound, no masses no hepatomegaly, no splenomegaly, no Apple's sign, no hernias. RECTAL: Deferred. GENITAL: Deferred. NEUROLOGICAL: Normal speech, gross motor function intact, gross sensory function intact. MUSCULOSKELETAL: Neck nontender, full range of motion, back nontender, full range of motion. EXTREMITIES: Nontender, full range of motion. SKIN: Color pink, dry, no turgor, no rash, no lacerations, no abrasions, no contusions. LYMPHATICS: Deferred. Results Laboratory and Microbiology Lab and Micro Result Laboratory Tests Test 04/01/25 09:09 04/01/25 10:20 White Blood Count 5.5 K/uL (4.8-10.8) Red Blood Count 4.24 MIL/uL (4.00-5.50) Hemoglobin 12.3 g/dL (12.0-16.0) Hematocrit 35.7 % (36-48) L Mean Corpuscular Volume 84.2 fL (79-99) Mean Corpuscular Hemoglobin 29.0 pg (27.0-33.0) Mean Corpuscular Hemoglobin Concent 34.5 g/dL (32.0-36.0) Red Cell Distribution Width 13.9 % (11.0-15.5) Platelet Count 192 K/uL (130-400) Mean Platelet Volume 9.8 fL (7.5-10.5) Immature Granulocyte % (Auto) 0.2 % (0-1) Neutrophils (%) (Auto) 83.9 % (40.0-77.0) H Lymphocytes (%) (Auto) 10.2 % (21.0-51.0) L Monocytes (%) (Auto) 4.9 % (3.0-13.0) Eosinophils (%) (Auto) 0.4 % (0.0-8.0) Basophils (%) (Auto) 0.4 % (0.0-5.0) Neutrophils # (Auto) 4.6 K/uL (1.8-7.7) Lymphocytes # (Auto) 0.6 K/uL (1.0-4.8) L Monocytes # (Auto) 0.3 K/uL (0.1-1.0) Eosinophils # (Auto) 0.02 K/uL (0.00-0.70) Basophils # (Auto) 0.02 K/uL (0.00-0.20) Absolute Immature Granulocyte (auto 0.01 K/uL (0-1) Nucleated Red Blood Cells 0.0 % (0.0-0.19) Sodium Level 133 mmol/L (136-145) L Potassium Level 3.7 mmol/L (3.5-5.1) Chloride Level 97 mmol/L (101-111) L Carbon Dioxide Level 30 mmol/L (21-32) Blood Urea Nitrogen 18 mg/dL (7-18) Creatinine 0.5 mg/dL (0.5-1.0) Glomerular Filtration Rate Calc 94 mL/min (>90) Random Glucose 183 mg/dL (70-105) H Total Calcium 9.2 mg/dL (8.5-10.1) Total Bilirubin 0.5 mg/dL (0.2-1.0) Aspartate Amino Transf (AST/SGOT) 28 U/L (10-37) Alanine Aminotransferase (ALT/SGPT) 23 U/L (12-78) Alkaline Phosphatase 98 U/L (50-136) Total Creatine Kinase 62 U/L (21-232) # Troponin I High Sensitivity 10 ng/L (4-50) Total Protein 7.5 g/dL (6.0-8.3) Albumin 3.8 g/dL (3.5-5.0) Urine Color STRAW (YELLOW) Urine Appearance CLEAR (CLEAR) Urine pH 7.0 (5.0-8.0) Urine Specific [place] 1.002 (1.001-1.031) Urine Protein NEGATIVE mg/dL (NEGATIVE) Urine Glucose (UA) NEGATIVE mg/dL (NEGATIVE) Urine Ketones NEGATIVE mg/dL (NEGATIVE) Urine Occult Blood NEGATIVE (NEGATIVE) Urine Nitrate NEGATIVE (NEGATIVE) Urine Bilirubin NEGATIVE mg/dL (NEGATIVE) Urine Urobilinogen 0.2 mg/dL (0.2-1.0) Urine Leukocyte Esterase NEGATIVE Elia/uL Labs Reviewed?: Yes MDM MDM: Differential diagnosis: Viral gastroenteritis, gastritis, GERD, Rationale: Tests considered and ordered secondary to shared decision making include: Previous outside records reviewed: Old ER visits. Risk of complication and/or morbidity or mortality of patient management: None Medications-Per medication reconciliation Need for hospitalization: Patient does not meet criteria for hospitalization. Patient is a an 80-year-old female coming in to be evaluated for abdominal discomfort and diarrhea. Laboratory workup negative for acute findings. Patient will be discharged in stable condition with a diagnosis of viral gastroenteritis. Medication was given for symptomatic relief. ED Course Orders Procedure Category Date Status Time Cbc With Differential LAB 04/01/25 Complete 08:47 Comprehensive LAB 04/01/25 Complete Metabolic Panel 08:47 Troponin I High LAB 04/01/25 Complete Sensitivity 08:47 Urinalysis Profile LAB 04/01/25 Complete 08:47 12 Lead Ekg Tracing- EKG 04/01/25 Complete Technical 08:47 Lactated Ringers PHA 04/01/25 In Process 1000ml (Lactated 09:00 Pantoprazole 40mg Inj PHA 04/01/25 In Process (Protonix 40mg Inj 09:00 Creatine Kinase, Total LAB 04/01/25 Complete 08:47 Lidocaine Hcl 2% PHA 04/01/25 Complete Viscous (Lidocaine Hcl 10:30 Mag/Alum/Simeth 30ml PHA 04/01/25 Complete (Maalox Plus 30ml) 10:30 Dicyclomine Hcl PHA 04/01/25 Complete (Bentyl 10mg/5ml 10:30 Current Medications Medications (Trade) Dose Ordered Sig/Franco Route PRN Reason Start Time Stop Time Status Last Admin Dose Admin Al Hydroxide/Mg Hydroxide (MAALox PLUS 30ML) 30 ml ONCE ONCE PO 04/01/25 10:30 04/01/25 10:31 DC 04/01/25 10:33 Dicyclomine HCl (Bentyl 10mg/5ml Syrup) 10 mg ONCE ONCE PO 04/01/25 10:30 04/01/25 10:31 DC 04/01/25 10:33 Lactated Ringer's 1,000 ml @ 0 mls/hr ONCE ONCE IV 04/01/25 09:00 04/01/25 09:01 DC 04/01/25 09:24 Lidocaine HCl (Lidocaine HCl 2% Viscous) 10 ml ONCE ONCE PO 04/01/25 10:30 04/01/25 10:31 DC 04/01/25 10:35 Pantoprazole Sodium (PROTonix 40MG INJ) 40 mg ONCE ONCE IVP 04/01/25 09:00 04/01/25 09:01 DC 04/01/25 09:23 Vital Signs Date Time Temp Pulse Resp B/P (MAP) Pulse Ox O2 Delivery O2 Flow Rate FiO2 04/01/25 10:04 97.5 59 18 160/63 100 Room Air* 0 21 04/01/25 08:41 97.5 59 18 173/66 100 Room Air DX & DISP Disposition: Discharge Departure Impression: Primary Impression: GERD (gastroesophageal reflux disease) Additional Impression: Viral gastroenteritis Condition: Stable Additional Instructions: FOLLOW-UP WITH PRIMARY CARE PROVIDER IN 1 TO 2 DAYS. TAKE MEDICATIONS DIRECTED HERE IN THE EMERGENCY ROOM. OKAY TO CONTINUE HOME MEDICATIONS UNLESS OTHERWISE DISCUSSED DURING YOUR VISIT IN THE EMERGENCY ROOM TODAY. RETURN TO YOUR NEAREST EMERGENCY ROOM IF SYMPTOMS WORSEN OR IF THERE IS NO IMPROVEMENT. CALL 911 IF YOU NEED IMMEDIATE ASSISTANCE. TAKE TYLENOL [id number] NEEDED AND IF NO CONTRAINDICATIONS ARE PRESENT. INCREASE ORAL HYDRATION. A WOUND CULTURE OR URINE CULTURE WAS ORDERED HERE IN THE EMERGENCY ROOM DEPARTMENT PLEASE FOLLOW-UP WITH PRIMARY CARE PROVIDER AND ADVISE THEM TO GET REPORTS FROM OUR FACILITY. IF YOU HAD ANY LATASHA WRAP/SPLINTS THAT WERE APPLIED HERE, PLEASE DO NOT REMOVE THEM UNTIL YOU SEE YOUR PRIMARY CARE OR SPECIALTY. Referrals: Referrals: VLADIMIR ORELLANA (PCP) Time of Disposition: 10:52 DAVIAN GUZMAN MD Apr 01, 2025 10:31
[2025-04-01 10:33] LABS: ADD UA MICROSCOPIC NO; COLOR,URINE STRAW (YELLOW)
[2025-04-01] MEDS: DICYCLOMINE HCL 10 MG/5 ML ML PO ONE (10:33)
[2025-04-01] MEDS: MAG/ALUM/SIMETH 30 ML UDCUP PO ONE (10:33)
[2025-04-01] MEDS: LIDOCAINE HCL 2% VISCOUS 15 ML UDCUP PO ONE (10:35)
== END 2025-04-01 11:04 | disposition home or self-care (01) ==
LOC: EDH 08:40
DX: A08.4 Viral intestinal infection, unspecified (principal); K21.9 Gastro-esophageal reflux disease without esophagitis; I10 Essential (primary) hypertension; M19.90 Unspecified osteoarthritis, unspecified site; Z79.899 Other long term (current) drug therapy; Z88.0 Allergy status to penicillin; Z88.5 Allergy status to narcotic agent; Z90.49 Acquired absence of other specified parts of digestive tract; Z95.0 Presence of cardiac pacemaker
CPT/HCPCS: 99284; 96374; 96361; 82550; 84484; 80053; 85025; 81003; 36415; 93005; J7120; J2470

== ENCOUNTER 2025-05-09 07:09 | Emergency (ER) | payer MEDICAID ==
[~2025-05-09] VITALS: Ht 160 cm; Wt 68.0 kg
--- NOTE | 2025-05-09 07:42 | ERN ---
General Chief Complaint: UTI without Fever Stated Complaint: PAINFUL URINATION Time Seen by MD: 07:12 Source: patient History of Present Illness Initial Comments Patient is a an 80-year-old female coming in complaining of dysuria. Per patient this has been ongoing for a couple of days. She states that she has had polyuria due to the discomfort. No fever or chills Allergies: Coded Allergies: Penicillins (Unverified Allergy, Unknown, 08/19/22) morphine (Unverified Allergy, Unknown, 08/19/22) Home Meds Active Scripts Benzonatate (Tessalon Perles) 100 Mg Cap, 100 MG PO q8 hours PRN for Cough, #15 CAP 0 Refills Prov:ROSALES MCCRAY NP 05/05/24 Nitrofurantoin Monohyd/M-Cryst (Nitrofurantoin [place]-Mcr 100 mg) 100 Mg Capsule, 100 MG PO BID for 5 Days, #10 CAP Prov:JOSETTE SOTO NP 04/19/24 Phenazopyridine HCl (Pyridium) 200 Mg Tablet, 200 MG PO TID for painful urination for 10 Days, #30 TAB 0 Refills Prov:JOSETTE SOTO NP 04/19/24 Famotidine (Pepcid) 20 Mg Tablet, 20 MG PO DAILY, #30 TAB Prov:YOVANI MCARTHUR MD 10/30/23 Prednisone (Prednisone) 20 Mg Tablet, 1 TAB PO AD for 6 Days, #14 TAB 0 Refills TAKE 3 TAB BY MOUTH daily X3 DAYS, THEN TAKE 2 TAB BY MOUTH daily X2 DAYS, THEN TAKE 1 TAB BY MOUTH ONCE A DAY X1 DAY. Prov:YOVANI MCARTHUR MD 10/30/23 Diphenhydramine HCl (Benadryl) 50 Mg Cap, 50 MG PO QID PRN for itching for 10 Days, #30 CAP 0 Refills Prov:YOVANI MCARTHUR MD 10/30/23 Benzonatate (Tessalon Perles) 100 Mg Cap, 100 MG PO TID for cough, #30 CAP 0 Refills Prov:AMINTA RAMACHANDRAN [employer] 10/18/23 Azithromycin (Zithromax Tri-[place]ley) 500 Mg Tablet, 500 MG PO DAILY, #3 TAB Prov:AMINTA RAMACHANDRAN NP 10/18/23 Meloxicam (Meloxicam) 7.5 Mg Tablet, 7.5 MG PO DAILYBKFST, #30 TAB Prov:CARTER CUTLER DMITRI 08/19/22 Albuterol Sulfate (Proventil Hfa) 6.7 Gm Hfa.aer.ad, 2 PUFF IH QID, #1 INHALER Prov:CARTER CUTLER DMITRI 08/19/22 Benzonatate (Tessalon Perles) 100 Mg Cap, 100 MG PO QID, #30 CAP Prov:RAYA CUTLERAzra RIZVI 08/19/22 Doxycycline Monohydrate (Doxycycline Monohydrate) 100 Mg Capsule, 100 MG PO BID for 10 Days, #20 CAP Prov:CARTER CUTLER HI 08/19/22 Past Medical History Past Medical History: Hypertension Past Surgical History: Cholecystectomy Surgical History Other: PACEMAKER Family History Family History: Negative Social History Social History: Lives with family Female( History) History: Not Applicable ROS Dictation CONSTITUTIONAL: No chills, no fever, no weakness, no diaphoresis, no malaise. HEAD/FACE: No signs of trauma. EENT: No eye pain, no blurred vision, no tearing, no double vision, no ear pain, no ear discharge, no nose pain, no nasal congestion, no throat pain, no throat swelling, no mouth pain. RESPIRATORY: No cough, no orthopnea, no SOB, no stridor, no wheezing. CARDIOVASCULAR: No chest pain, no edema, no palpitations, no syncope. GASTROINTESTINAL/ABDOMINAL: No abdominal pain, no constipation, no diarrhea, no nausea, no vomiting. GENITOURINARY: No abnormal discharge, no dysuria, no frequent urination, no hematuria. No complaints of pain in the genitals. MUSCULOSKELETAL: No back pain, no gout, no joint pain, no joint swelling, no muscle pain, no muscle stiffness, no neck pain. INTEGUMENTARY: No change in color, no change in hair/nails, no dryness, no lesion, no lumps, no rash. NEUROLOGICAL/PSYCH: No anxiety, not depressed, no emotional problem, no headache, no numbness, no pre-existing deficit, no history of seizures, no tremors, no weakness. HEMATOLOGIC/LYMPHATIC: Not anemic, no history of blood clots, no apparent bleeding, no bruising, glands not swollen. All Systems Negative, Except as Noted. Physical Exam Physical Exam Dictation VITAL SIGNS: Reviewed. GENERAL APPEARANCE: Alert, oriented x3, no acute distress, obese. HEAD AND FACE: Non-traumatic. EYES: PERRL, pink conjunctivas, eyelid no trauma, anterior chamber clear. EARS: Pinnas intact and no signs of trauma or erythema. Ear canals clear and no discharge. TMs no erythema. NOSE: No discharge, no bleeding. OROPHARYNX: Mouth normal, teeth no caries, tongue pink. Pharynx clear, no erythema. Tonsils no exudates, no abscesses noted. Mucous membrane moist. NECK: Supple, non-tender, no thyromegaly, no masses, no JVD, no bruits. BREAST: Deferred. CHEST: No tenderness, no crepitus, no paradoxical movement, no retractions. LUNGS: Clear, well-ventilated, symmetric, no rales, no wheezing, no rhonchi, no stridor, good breath sounds bilaterally. HEART: Regular rate, regular rhythm, no murmur, no gallops. VASCULAR: No peripheral edema. ABDOMEN: Soft, positive bowel sounds, nondistended, no guarding, nontender, no rebound, no masses no hepatomegaly, no splenomegaly, no Apple's sign, no hernias. RECTAL: Deferred. GENITAL: Deferred. NEUROLOGICAL: Normal speech, gross motor function intact, gross sensory function intact. MUSCULOSKELETAL: Neck nontender, full range of motion, back nontender, full range of motion. EXTREMITIES: Nontender, full range of motion. SKIN: Color pink, dry, no turgor, no rash, no lacerations, no abrasions, no contusions. LYMPHATICS: Deferred. Results Laboratory and Microbiology Lab and Micro Result Laboratory Tests Test 05/09/25 07:37 05/09/25 07:49 Urine Color COLORLESS (YELLOW) Urine Appearance CLEAR (CLEAR) Urine pH 6.0 (5.0-8.0) Urine Specific [place] 1.008 (1.001-1.031) Urine Protein NEGATIVE mg/dL (NEGATIVE) Urine Glucose (UA) NEGATIVE mg/dL (NEGATIVE) Urine Ketones NEGATIVE mg/dL (NEGATIVE) Urine Occult Blood SMALL (NEGATIVE) H Urine Nitrate NEGATIVE (NEGATIVE) Urine Bilirubin NEGATIVE mg/dL (NEGATIVE) Urine Urobilinogen 0.2 mg/dL (0.2-1.0) Urine Leukocyte Esterase NEGATIVE Elia/uL Urine RBC 0-1 /HPF (0-1) Urine WBC 0-1 /HPF (0-1) Urine Bacteria None /HPF (None Seen) White Blood Count 5.1 K/uL (4.8-10.8) Red Blood Count 4.33 MIL/uL (4.00-5.50) Hemoglobin 12.5 g/dL (12.0-16.0) Hematocrit 37.5 % (36-48) Mean Corpuscular Volume 86.6 fL (79-99) Mean Corpuscular Hemoglobin 28.9 pg (27.0-33.0) Mean Corpuscular Hemoglobin Concent 33.3 g/dL (32.0-36.0) Red Cell Distribution Width 14.6 % (11.0-15.5) Platelet Count 207 K/uL (130-400) Mean Platelet Volume 9.7 fL (7.5-10.5) Immature Granulocyte % (Auto) 0.4 % (0-1) Neutrophils (%) (Auto) 71.3 % (40.0-77.0) Lymphocytes (%) (Auto) 17.4 % (21.0-51.0) L Monocytes (%) (Auto) 9.5 % (3.0-13.0) Eosinophils (%) (Auto) 0.8 % (0.0-8.0) Basophils (%) (Auto) 0.6 % (0.0-5.0) Neutrophils # (Auto) 3.6 K/uL (1.8-7.7) Lymphocytes # (Auto) 0.9 K/uL (1.0-4.8) L Monocytes # (Auto) 0.5 K/uL (0.1-1.0) Eosinophils # (Auto) 0.04 K/uL (0.00-0.70) Basophils # (Auto) 0.03 K/uL (0.00-0.20) Absolute Immature Granulocyte (auto 0.02 K/uL (0-1) Nucleated Red Blood Cells 0.0 % (0.0-0.19) Sodium Level 131 mmol/L (136-145) L Potassium Level 3.9 mmol/L (3.5-5.1) Chloride Level 97 mmol/L (101-111) L Carbon Dioxide Level 29 mmol/L (21-32) Blood Urea Nitrogen 23 mg/dL (7-18) H Creatinine 0.6 mg/dL (0.5-1.0) Glomerular Filtration Rate Calc 90 mL/min (>90) Random Glucose 91 mg/dL (70-105) Total Calcium 9.3 mg/dL (8.5-10.1) Labs Reviewed?: Yes MDM MDM: Differential diagnosis: Dehydration, dysuria, vaginitis, Rationale: Tests considered and ordered secondary to shared decision making include: Previous outside records reviewed: Old ER visits. Risk of complication and/or morbidity or mortality of patient management: None Medications-Per medication reconciliation Need for hospitalization: Patient does not meet criteria for hospitalization. Need for emergency major/minor surgery: No Patient is a an 78-year-old female coming in complaining of dysuria. Laboratory workup within normal limits mild dehydration. Patient was hydrated with IV fluids and discharged in stable condition. Did advised her appropriate follow up with PCP in 1-2 days for ongoing evaluation and management. ED Course Orders Procedure Category Date Status Time Cbc With Differential LAB 05/09/25 Complete 07:13 Basic Metabolic Panel LAB 05/09/25 Complete 07:13 Urinalysis LAB 05/09/25 Complete W/Microscopic 07:13 0.9%Nacl 1000ml (Ns PHA 05/09/25 Complete 1000ml) 08:30 Current Medications Medications (Trade) Dose Ordered Sig/Franco Route PRN Reason Start Time Stop Time Status Last Admin Dose Admin Sodium Chloride 1,000 ml @ 0 mls/hr ONCE ONCE IV 05/09/25 08:30 05/09/25 08:31 DC 05/09/25 08:59 Vital Signs Date Time Temp Pulse Resp B/P (MAP) Pulse Ox O2 Delivery O2 Flow Rate FiO2 05/09/25 07:15 60 18 146/63 99 Room Air* 0 21 05/09/25 07:10 97.2 60 19 143/65 99 Room Air 0 DX & DISP Disposition: Discharge Departure Impression: Primary Impression: Pelvic pain Additional Impression: Dehydration Condition: Stable Additional Instructions: FOLLOW-UP WITH PRIMARY CARE PROVIDER IN 1 TO 2 DAYS. TAKE MEDICATIONS DIRECTED HERE IN THE EMERGENCY ROOM. OKAY TO CONTINUE HOME MEDICATIONS UNLESS OTHERWISE DISCUSSED DURING YOUR VISIT IN THE EMERGENCY ROOM TODAY. RETURN TO YOUR NEAREST EMERGENCY ROOM IF SYMPTOMS WORSEN OR IF THERE IS NO IMPROVEMENT. CALL 911 IF YOU NEED IMMEDIATE ASSISTANCE. TAKE TYLENOL [id number] NEEDED AND IF NO CONTRAINDICATIONS ARE PRESENT. INCREASE ORAL HYDRATION. A WOUND CULTURE OR URINE CULTURE WAS ORDERED HERE IN THE EMERGENCY ROOM DEPARTMENT PLEASE FOLLOW-UP WITH PRIMARY CARE PROVIDER AND ADVISE THEM TO GET REPORTS FROM OUR FACILITY. IF YOU HAD ANY LATASHA WRAP/SPLINTS THAT WERE APPLIED HERE, PLEASE DO NOT REMOVE THEM UNTIL YOU SEE YOUR PRIMARY CARE OR SPECIALTY. Referrals: Referrals: VLADIMIR ORELLANA (PCP) Time of Disposition: 09:24 DAVIAN GUZMAN MD May 09, 2025 07:42
[2025-05-09 07:58] LABS: IMMATURE GRANULOCYTE ABSOLUTE 0.02 K/uL (0-1); NUCLEATED RED BLOOD CELLS 0.0 % (0.0-0.19); PLATELET COUNT (AUTO) 207 K/uL (130-400); RED BLOOD CELL COUNT(AUTO) 4.33 MIL/uL (4.00-5.50); RED CELL DISTRIBUTION WIDTH 14.6 % (11.0-15.5); WHITE BLOOD COUNT (AUTO) 5.1 K/uL (4.8-10.8)
[2025-05-09 08:03] LABS: APPEARANCE,URINE CLEAR (CLEAR); GLUCOSE, URINE (UA) NEGATIVE (NEGATIVE); LEUKOCYTE ESTERASE ,URINE NEGATIVE Leu/uL (NEGATIVE); NITRATE,URINE NEGATIVE (NEGATIVE); OCCULT BLOOD,URINE SMALL (NEGATIVE)
[2025-05-09 08:04] LABS: CREATININE 0.6 mg/dL (0.5-1.0); GLOMERULAR FILTR. RATE CALC 90.0 mL/min (>90); GLUCOSE,RANDOM 91.0 mg/dL (70-105); SODIUM SERUM 131.0 mmol/L (136-145); UREA NITROGEN, BLOOD 23.0 mg/dL (7-18)
[2025-05-09] MEDS: 0.9%NACL 1000ML 1,000 ML IV ONE (08:59)
[2025-05-09 09:33] VITALS: BP 149/70; PULSE 62; RESP 18; TEMP 97.2; O2SAT 99
--- NOTE | 2025-05-09 09:48 | NUR ---
CALLED FAMILY DAUGHTER IN LAW PATIENT IS READY FOR DISCHARGE.
== END 2025-05-09 09:55 | disposition home or self-care (01) ==
LOC: EDH 07:09
DX: R10.2 Pelvic and perineal pain (principal); E86.0 Dehydration; I10 Essential (primary) hypertension; Z88.0 Allergy status to penicillin; Z88.5 Allergy status to narcotic agent; Z95.0 Presence of cardiac pacemaker; Z90.49 Acquired absence of other specified parts of digestive tract
CPT/HCPCS: 99283; 96360; 80048; 85025; 81001; 36415; J7030